=== PATIENT | female | born 1990 | race Caucasian/White ===

== ENCOUNTER 2016-10-19 09:47 | Emergency (ER) | payer MEDICAID, OTHER ==
--- NOTE | 2016-10-19 10:33 | PD ---
HPI Chief Complaint painless bleeding Date Seen: Oct 19, 2016 Time Seen: 10:20 (Mo Correia MD R1) Travel History International Travel<30 Days: No Contact w/Intl Traveler<30Days: No Known Affected Area: No (Mo Correia MD) History of Present Illness HPI 26 YO at 20 weeks gestation p/w painless bleeding per vagina beginning this morning. Amount of blood described is small without cramping or dysuria. Previous without complication. Pt denies CP, SOB, palpitations, [place] , blurry vision, dysuria, coagulation DO, vomiting or diarrhea, but has some nausea; also, no DVT calf pain. Para: 1 : 2 (Mo Correia MD) History Past Medical History Medical History: Denies Significant Hx (Mo Correia MD) Obstetric History Obstetric History , last 3 years ago w/o complication (Mo Correia MD) Past Surgical History Narrative Surgical R humerus fracture with plate as child (Mo Correia MD) Family History Family History: Negative (Mo Correia MD) Social History Alcohol Use: Yes (occasional glass of wine) Tobacco Use: No (quit when she got ) Substance Abuse: No (Mo Correia MD) Review of Systems General / Constitutional: Weight Gain, No: Fever, Weight Loss, Chills, Other Eyes: No: Diploplia, Blurred Vision, Visual changes, Pain, Photophobia, Other HENT: No: Headaches, Vertigo, Dental Difficulties, Lightheadedness, Other Cardiovascular: No: Irregular Rhythm, Chest Pain or Discomfort, Palpitations, Tachycardia, Syncope, Varicosities, Edema, Cyanosis, Other Respiratory: No: Cough, Short of Breath, Wheezing, Other Gastrointestinal: No: Nausea, Vomiting, Diarrhea, Abdominal Pain, Hematemesis, Hematochezia, Constipation, Changes in Bowel Habits, Indigestion, Loss of Appetite, Other Genitourinary: Pelvic Pain (occasional suprapubic pain), Vaginal Bleeding ( began this morning, painless) Skin: No Rash, No Itching, No Dryness, No Lumps, No Change in Pigmentation, No Change in Nails, No Alopecia, No Lesions, No Breast Lumps, No Breast Tenderness , No Breast Swelling, No Other Neurologic: Seizures, No: Weakness, Dizziness, Syncope, Focal Abnormalities, Coordination Problem, Headache, Slurred Speech Hematologic/Lymphatic: No Easy Bruising (Mo Correia MD R1) Physical Exam Narrative GENERAL: Well-nourished, well-developed patient in NAD. SKIN: Warm and dry. HEAD: Normocephalic and atraumatic. EYES: No scleral icterus. No injection or drainage. EOMI. ENT: No nasal drainage noted. Mucous membranes pink. Airway patent. NECK: Supple, trachea midline. CARDIOVASCULAR: Regular rate and rhythm without murmurs, gallops, or rubs. RESPIRATORY: Breath sounds equal bilaterally w/no increased WOB. No accessory muscle use. ABDOMEN/GI: Abdomen soft, non-tender, bowel sounds present, no rebound, no guarding Gravid to [20] weeks size Fundal Height: [20] GENITOURINARY: External genitalia were intact and normal in appearance; speculum exam revealed scant coating of blood in the posterior vaginal vault and on the cervical os. Cervix was closed, but a small polyp noted just inside the external os. EXTREMITIES: No cyanosis or edema. BACK: Nontender without obvious deformity. No CVA tenderness. NEUROLOGICAL: Awake and alert. Motor and sensory grossly within normal limits. CN II-XII grossly intact. Normal speech. (Mo Correia MD R1) MDM Medical Record Reviewed: Yes Narrative Course / MDM 26 YO at 20/1 weeks gestation by OB US performed at [facility] on 10/04/16 presents with painless vaginal bleeding that began this morning likely from small cervical polyp. - Discussed etiology of polyp bleeding - Advised pt to return if bleeding becomes heavier or more persistent - FHTs reassuring - OB US notes posterior placenta to r/o placenta previa - Discharged home (Mo Correia MD R1) Medical Record Reviewed: Yes (ultrasound report obtained and reviewed: posterior placenta, no previa) Attending Attestation The exam, history, and the medical decision-making described in the above note were completed with the assistance of the resident provider. I reviewed and agree with the findings presented. I attest that I had a [id number] encounter with the patient on the same day, and personally performed and documented my assessment and findings in the medical record. (Lupillo Ordonez MD) Diagnosis Diagnosis: Primary Impression: Polyp at cervical os Additional Impression: 20 weeks gestation of Disposition: 01 DISCHARGE HOME Condition: Good Mo Correia MD R1 Oct 19, 2016 10:33 Lupillo Ordonez MD Oct 19, 2016 11:04
== END 2016-10-19 11:46 | disposition home or self-care (01) ==
LOC: HOBED 09:47
DX: O34.42 Maternal care for other abnormalities of cervix, second trimester (principal); N84.1 Polyp of cervix uteri; Z3A.20 20 weeks gestation of pregnancy
CPT/HCPCS: 99281

== ENCOUNTER 2017-03-05 09:47 | Inpatient (IN) | payer MEDICAID ==
[~2017-03-05] VITALS: Ht 170.2 cm; Wt 82.0 kg
[2017-03-05] VITALS (16 sets, daily range): BP systolic 91–121; BP diastolic 58–77; PULSE 50–89; RESP 14–18; TEMP 98–98.6
[2017-03-05] MEDS ORDERED: LACTATED RINGER'S 1000 ML INJ 1,000 ML IV SCH (10:28)
[2017-03-05] MEDS ORDERED: LACTATED RINGER'S 1000 ML INJ 1,000 ML IV PRN (10:28)
[2017-03-05] MEDS ORDERED: LIDOCAINE HCL 1% 50 ML VIAL I-DERMAL PRN (10:30)
[2017-03-05] MEDS ORDERED: CITRIC ACID-SODIUM CITRATE LIQ 30 ML UDC PO SCH (10:30)
[2017-03-05] MEDS ORDERED: SODIUM CHLORID 0.9% 500 ML INJ 500 ML IV PRN (10:30)
[2017-03-05] MEDS ORDERED: MINERAL OIL 10 ML VIAL TOPICAL PRN (10:30)
[2017-03-05] MEDS ORDERED: LIDOCAINE HCL 1% 50 ML VIAL INFIL PRN (10:30)
--- NOTE | 2017-03-05 10:40 | PD ---
HPI Chief Complaint Contractions Date Seen: Mar 05, 2017 Time Seen: 10:00 Travel History International Travel<30 Days: No Contact w/Intl Traveler<30Days: No Known Affected Area: No History of Present Illness HPI 26 y/o at 39/5 weeks gestation presents to the [facility] ED with a chief complaint of contractions that began around 8:45 AM today. Patient states that the contractions are regular and 3 minutes apart. Her water broke around 9:[address] to the hospital, she states the fluid was clear with some blood. Patient gets her care at [facility] and gynecology in [place]. She states that her has been uncomplicated, she passed her diabetes screen, and her blood pressures have been normal. Notably, she is GBS negative. Patient would like a natural delivery with no epidural and would not like to be augmented with Pitocin. She has to have the baby in the hospital because she is hep C positive. She did have some bleeding on Sunday evening and this morning that she said was like a period. History Past Medical History Narrative Medical Hepatitis C Obstetric History Obstetric History Last was full term with no complications, delivery in 2013 in the [facility] Past Surgical History Narrative Surgical Arm surgery Family History Family History: Negative Social History Alcohol Use: No Tobacco Use: Yes (in the process of quitting, down to 2 cigarettes per day) Substance Abuse: No Allergies-Medications (Allergen,Severity, Reaction): Coded Allergies: No Known Allergies (Unverified , 03/05/17) Review of Systems Except as stated in HPI: all other systems reviewed are Neg Physical Exam Narrative GENERAL: Well-nourished, well-developed patient. SKIN: Warm and dry. HEAD: Normocephalic and atraumatic. EYES: No scleral icterus. No injection or drainage. ENT: No nasal drainage noted. Mucous membranes pink. Airway patent. NECK: Supple, trachea midline. No JVD. CARDIOVASCULAR: Regular rate and rhythm without murmurs, gallops, or rubs. RESPIRATORY: Breath sounds equal bilaterally. No accessory muscle use. ABDOMEN/GI: Abdomen soft, non-tender, bowel sounds present, no rebound, no guarding Gravid to 40 weeks size GENITOURINARY: External Genitalia: intact, enlarged varicose veins on the right labia majora Cervix: Dilatation: 7 cm Effacement: 100% Station: -1 Presentation: Cephalic Membranes: ruptured Uterine Contractions: every 3-4 mins FHT's: Category: I Baseline: 150 Reactive: accels present up to165 Variability: Moderate Decels: None EXTREMITIES: No cyanosis or edema. BACK: Nontender without obvious deformity. NEUROLOGICAL: Awake and alert. Motor and sensory grossly within normal limits. Five out of 5 muscle strength in all muscle groups. Normal speech. Data Data Vital Signs Reviewed: Yes Orders Orders Ob/Psych Drug Screen, Urine (03/05/17 10:27) Admit To Inpatient (03/05/17 ) Code Status (03/05/17 10:28) Vital Signs (Adult) .Per protocol (03/05/17 10:28) Activity Oob Ad Aditi (03/05/17 10:28) Heart (03/05/17 10:28) Amnioinfusion (03/05/17 10:28) Urinary Catheter Management .ONCE (03/05/17 10:28) Diet Liquid (03/05/17 Lunch) Lactated Ringer's 1000 Ml Inj (Lr 1000 M (03/05/17 10:28) Lactated Ringer's 1000 Ml Inj (Lr 1000 M (03/05/17 10:28) Sodium Chlorid 0.9% 500 Ml Inj (Ns 500 M (03/05/17 10:30) Sodium Chlor 0.9% 1000 Ml Inj (Ns 1000 M (03/05/17 10:48) Lidocaine 1% Inj (50 Ml) (Xylocaine 1% I (03/05/17 10:30) Citric Acid-Sodium Citrate Liq (Bicitra (03/05/17 10:30) Fentanyl Inj (Fentanyl Inj) (03/05/17 10:30) Fentanyl Inj (Fentanyl Inj) (03/05/17 10:30) Complete Blood Count With Diff (03/05/17 10:28) Hold Clot (03/05/17 10:28) Abo/Rh Blood Type (03/05/17 10:28) Urinalysis - C+S If Indicated (03/05/17 10:28) Drug Screen, Random Urine (03/05/17 10:28) Hepatitis Profile (03/05/17 10:28) Resp Oxygen Non Rebreathe Mask (03/05/17 ) ^ Epidural / Intrathecal Infus (03/05/17 10:28) Oxytocin 30 Units-500ml Premix (Pitocin (03/05/17 10:30) Lidocaine 1% Inj (50 Ml) (Xylocaine 1% I (03/05/17 10:30) Light Mineral Oil (Muri-Lube Oil) (03/05/17 10:30) Inpatient Certification (03/05/17 ) Specimen To Be Collected PRN (03/05/17 10:28) Specimen To Be Collected PRN (03/05/17 10:28) MDM Medical Record Reviewed: Yes Interpretation(s) 26-year-old presents in active labor, spontaneously ruptured Plan Intrauterine , heart tones, category I reassuring -Admit to L&D -Continuous monitoring -Patient does not desire an epidural or augmentation with Pitocin if needed -Continue routine antepartum care -Expect vaginal delivery -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
[2017-03-05] MEDS ORDERED: SODIUM CHLOR 0.9% 1000 ML INJ 1,000 ML IV PRN (10:48)
--- NOTE | 2017-03-05 10:54 | HHI.HP ---
History & Physical H&P Chief Complaint Contractions Date Seen: Mar 05, 2017 Time Seen: 10:00 Travel History International Travel<30 Days: No Contact w/Intl Traveler<30Days: No Known Affected Area: No History of Present Illness HPI 26 y/o at 39/5 weeks gestation presents to the [facility] ED with a chief complaint of contractions that began around 8:45 AM today. Patient states that the contractions are regular and 3 minutes apart. Her water broke around 9:[address] to the hospital, she states the fluid was clear with some blood. Patient gets her care at [facility] and gynecology in [place]. She states that her has been uncomplicated, she passed her diabetes screen, and her blood pressures have been normal. Notably, she is GBS negative. Patient would like a natural delivery with no epidural and would not like to be augmented with Pitocin. She has to have the baby in the hospital because she is hep C positive. She did have some bleeding on Sunday evening and this morning that she said was like a period. History (Limited) History Past Medical History Narrative Medical Hepatitis C Obstetric History Obstetric History Last was full term with no complications, delivery in 2013 in the [place] of [place] Past Surgical History Narrative Surgical Arm surgery Family History Family History: Negative Social History Alcohol Use: No Tobacco Use: Yes (in the process of quitting, down to 2 cigarettes per day) Substance Abuse: No Allergies-Medications Allergies-Medications (Allergen,Severity, Reaction): Coded Allergies: No Known Allergies (Unverified , 03/05/17) ROS Review of Systems Except as stated in HPI: all other systems reviewed are Neg Physical Exam Physical Exam Narrative GENERAL: Well-nourished, well-developed patient. SKIN: Warm and dry. HEAD: Normocephalic and atraumatic. EYES: No scleral icterus. No injection or drainage. ENT: No nasal drainage noted. Mucous membranes pink. Airway patent. NECK: Supple, trachea midline. No JVD. CARDIOVASCULAR: Regular rate and rhythm without murmurs, gallops, or rubs. RESPIRATORY: Breath sounds equal bilaterally. No accessory muscle use. ABDOMEN/GI: Abdomen soft, non-tender, bowel sounds present, no rebound, no guarding Gravid to 40 weeks size GENITOURINARY: External Genitalia: intact, enlarged varicose veins on the right labia majora Cervix: Dilatation: 7 cm Effacement: 100% Station: -1 Presentation: Cephalic Membranes: ruptured Uterine Contractions: every 3-4 mins FHT's: Category: I Baseline: 150 Reactive: accels present up to165 Variability: Moderate Decels: None EXTREMITIES: No cyanosis or edema. BACK: Nontender without obvious deformity. NEUROLOGICAL: Awake and alert. Motor and sensory grossly within normal limits. Five out of 5 muscle strength in all muscle groups. Normal speech. Data Data Data Vital Signs Reviewed: Yes Orders Orders Ob/Psych Drug Screen, Urine (03/05/17 10:27) Admit To Inpatient (03/05/17 ) Code Status (03/05/17 10:28) Vital Signs (Adult) .Per protocol (03/05/17 10:28) Activity Oob Ad Aditi (03/05/17 10:28) Heart (03/05/17 10:28) Amnioinfusion (03/05/17 10:28) Urinary Catheter Management .ONCE (03/05/17 10:28) Diet Liquid (03/05/17 Lunch) Lactated Ringer's 1000 Ml Inj (Lr 1000 M (03/05/17 10:28) Lactated Ringer's 1000 Ml Inj (Lr 1000 M (03/05/17 10:28) Sodium Chlorid 0.9% 500 Ml Inj (Ns 500 M (03/05/17 10:30) Sodium Chlor 0.9% 1000 Ml Inj (Ns 1000 M (03/05/17 10:48) Lidocaine 1% Inj (50 Ml) (Xylocaine 1% I (03/05/17 10:30) Citric Acid-Sodium Citrate Liq (Bicitra (03/05/17 10:30) Fentanyl Inj (Fentanyl Inj) (03/05/17 10:30) Fentanyl Inj (Fentanyl Inj) (03/05/17 10:30) Complete Blood Count With Diff (03/05/17 10:28) Hold Clot (03/05/17 10:28) Abo/Rh Blood Type (03/05/17 10:28) Urinalysis - C+S If Indicated (03/05/17 10:28) Drug Screen, Random Urine (03/05/17 10:28) Hepatitis Profile (03/05/17 10:28) Resp Oxygen Non Rebreathe Mask (03/05/17 ) ^ Epidural / Intrathecal Infus (03/05/17 10:28) Oxytocin 30 Units-500ml Premix (Pitocin (03/05/17 10:30) Lidocaine 1% Inj (50 Ml) (Xylocaine 1% I (03/05/17 10:30) Light Mineral Oil (Muri-Lube Oil) (03/05/17 10:30) Inpatient Certification (03/05/17 ) Specimen To Be Collected PRN (03/05/17 10:28) Specimen To Be Collected PRN (03/05/17 10:28) MDM MDM Medical Record Reviewed: Yes Interpretation(s) 26-year-old presents in active labor, spontaneously ruptured Plan Intrauterine , heart tones, category I reassuring -Admit to L&D -Continuous monitoring -Patient does not desire an epidural or augmentation with Pitocin if needed -Continue routine antepartum care -Expect vaginal delivery -Patient's rotary filter operator presents in the labor room Princess Coats MD R2 Mar 05, 2017 10:54
[2017-03-05] MEDS ORDERED: OXYTOCIN 30 UNITS-500ML PREMIX 500 ML IV ONE (11:00)
[2017-03-05] MEDS ORDERED: PREN29TA4 (11:43)
[2017-03-05 11:54] LABS: AUTOMATED NEUTROPHIL # 9.4 TH/MM3 (1.8-7.7); BASOPHIL % 0.2 % (0.0-2.0); EOSINOPHIL % 0.4 % (0.0-4.0); HEMATOCRIT 37.3 % (35.0-46.0); HEMO FLAGS DIFF FINAL; LYMPH % 14.6 % (9.0-44.0); LYMPHOCYTE # 1.7 TH/MM3 (1.0-4.8); MEAN CORPUSCULAR HEMOGLOBIN 32.1 PG (27.0-34.0); MEAN CORPUSCULAR HGB CONC 34.1 % (32.0-36.0); MONO % 5.3 % (0.0-8.0); NEUT % 79.5 % (16.0-70.0); PLATELET COUNT 218 TH/MM3 (150-450); RED BLOOD COUNT 3.97 MIL/MM3 (4.00-5.30); RED CELL DISTRIBUTION WIDTH 13.5 % (11.6-17.2); WHITE BLOOD COUNT 11.8 TH/MM3 (4.0-11.0)
[2017-03-05 12:16] LABS: BACTERIA, URINE FEW /hpf; BLOOD, URINE LARGE (NEG); COMMENT (UR) CULTURE INDICATED; CULTURE IF INDICATED CULTURE INDICATED; GLUCOSE,URINE NEG (NEG); KETONE, URINE TRACE mg/dL (NEG); MUCUS URINE MOD /lpf (OCC); NITRITE,URINE NEG (NEG); SQUAMOUS EPITHELIAL CELL URINE 69 /hpf (0-5); URINE COLOR YELLOW (YELLW/STRAW)
--- NOTE | 2017-03-05 12:54 | PD.OB.DELI ---
Weeks gestation: 39 (39/5weeks) Gest age assessed date: Mar 05, 2017 Gest age assessed time: 10:30 Pt started active labor?: Yes Active labor start date: Mar 05, 2017 Active labor start time: 09:20 Medical induction of labor?: No Artificial rupture of membrane: No Anesthesia: None Episiotomy: None Vaginal Delivery: Normal, Spontaneous Presentation: Occiput anterior Nuchal Cord: None Delayed cord clamping (45 sec): Yes Delivery date: Mar 05, 2017 Delivery time: 12:35 One Minute : 8 Five Minute : 9 Weight: 3540g Placenta: Spontaneous delivery, Intact Laceration: No lacerations Estimated blood loss: 100cc Additional Information Dr Correia delivered, Dr Mederos supervised, and Dr Coats assisted. Mo Correia MD R1 Mar 05, 2017 12:54
[2017-03-05] MEDS ORDERED: ZOLPIDEM TARTRATE 5 MG TAB PO PRN (13:00)
[2017-03-05] MEDS ORDERED: DOCUSATE SODIUM 50 MG/SENNA 8.6 MG TAB PO PRN (13:00)
[2017-03-05] MEDS ORDERED: ALUMINUM/MAGNESIUM/SIMETH 30 ML CUP PO PRN (13:00)
[2017-03-05] MEDS ORDERED: BENZOCAINE 20% TOPICAL SPRAY 60 ML CAN TOPICAL PRN (13:00)
[2017-03-05] MEDS ORDERED: ONDANSETRON ODT 4 MG TAB PO PRN (13:00)
[2017-03-05] MEDS ORDERED: SODIUM CHLORIDE 0.9% FLUSH 10 ML FLUSH IV FLUSH PRN (13:00)
[2017-03-05] MEDS ORDERED: WITCH HAZEL 50%/GLYCERIN 12.5% 40 PAD JAR TOPICAL PRN (13:00)
[2017-03-05] MEDS ORDERED: IBUPROFEN 800 MG TAB PO PRN (13:00)
[2017-03-05] MEDS ORDERED: ACETAMINOPHEN 325 MG TAB PO PRN (13:00)
[2017-03-05] MEDS ORDERED: OXYTOCIN 30 UNITS-500ML PREMIX 500 ML IV SCH (13:00)
[2017-03-05] MEDS ORDERED: DIPHTH/TETANUS/ACEL PERTUSSIS (BOOSTER) 0.5 ML VIAL/PFS IM ONE (16:00)
[2017-03-05] MEDS ORDERED: MEASLES, MUMPS, RUBELLA VACCINE 0.5 ML VIAL SQ ONE (16:00)
[2017-03-05] MEDS ORDERED: SODIUM CHLORIDE 0.9% FLUSH 10 ML FLUSH IV FLUSH SCH (21:00)
[2017-03-06 08:00] VITALS: BP 103/68; PULSE 60; RESP 16; TEMP 98.1
--- NOTE | 2017-03-06 08:33 | HHI.OB ---
Subjective Post Day: 1 Remarks Ms Mackey had no acute events overnight. Her pain is well controlled, ambulating , tolerating PO, voiding, and flatus but no stool yet. Lochia is normal in volume and decreasing. VSS. Denies CP, SOB, N/V/D, and DVT pain. Objective Vitals/I&O Vital Signs Date Time Temp Pulse Resp B/P (MAP) Pulse Ox O2 Delivery O2 Flow Rate FiO2 03/05/17 19:38 98.4 50 14 118/69 (85) 03/05/17 15:05 98.1 03/05/17 15:05 76 14 109/61 (77) 03/05/17 14:31 70 118/61 (80) 03/05/17 14:19 60 120/65 (83) 03/05/17 13:45 53 110/71 (84) 03/05/17 13:30 64 113/58 (76) 03/05/17 13:15 78 102/59 (73) 03/05/17 13:05 98.6 03/05/17 13:01 85 121/77 (92) 03/05/17 12:59 18 03/05/17 12:47 89 91/69 (76) 03/05/17 12:42 87 118/68 (85) 03/05/17 12:40 18 03/05/17 11:40 98.0 18 03/05/17 11:38 73 118/71 (87) 03/05/17 11:01 68 113/71 (85) Objective Remarks GENERAL: Well-nourished, well-developed patient in NAD her baby. CARDIOVASCULAR: Regular rate and rhythm without murmur, gallop, or rub. RESPIRATORY: Breath sounds equal bilaterally in all lung arriaga. No accessory muscle use. ABDOMEN/GI: Abdomen soft, non-tender. Appropriately distended. Fundus: Firm, non-tender below umbilicus. GENITOURINARY: Light to moderate bleeding. EXTREMITIES: No cyanosis or edema, non-tender, without signs of DVT. Medications and IVs Current Medications Medications (Trade) Dose Ordered Sig/Hortensia Route Start Time Stop Time Status Last Admin (NS Flush) 2 ml BID IV FLUSH 03/05/17 21:00 (NS Flush) 2 ml UNSCH PRN IV FLUSH 03/05/17 13:00 (Tylenol) 650 mg Q4H PRN PO 03/05/17 13:00 (Motrin) 800 mg Q8H PRN PO 03/05/17 13:00 (Americaine 20% Top Spr) 1 spray Q4H PRN TOPICAL 03/05/17 13:00 03/05/17 16:40 (Tucks Pads) 1 applic QID PRN TOPICAL 03/05/17 13:00 03/05/17 16:40 (Anabelle-Colace) 2 tab Q12H PRN PO 03/05/17 13:00 (Ambien) 5 mg HS PRN PO 03/05/17 13:00 (Mag-Al Plus Susp Liq) 15 ml Q8H PRN PO 03/05/17 13:00 (Zofran Odt) 4 mg Q6H PRN PO 03/05/17 13:00 Assessment/Plan Assessment and Plan 26YO delivered via at 39/5 weeks and is PPD#1. AFVSS with isolated HR at 50. Pain controlled, ambulating w/o dizziness, taking PO, voiding and flatus. No BM yet. Lochia normal and decreasing. No CP, SOB, N/V/D, or DVT pain. PLAN: -Routine care -Ibuprofen PRN for pain/cramping -Encouraged ambulation, -Hepatitis panel pending -Advised vaginal rest for 6 weeks; showers only for next week or two -Will follow up with [facility] in 6 weeks -Considering control options--would like LARC; advised we can do depot in hospital before discharge if desired -Likely discharge tomorrow Discussed with Jae Mederos and Mo Ramos MD R1 Mar 06, 2017 08:33
[2017-03-06] MEDS ORDERED: IBUP1TAB7 PO (16:24)
[2017-03-06] MEDS ORDERED: PERI PO (16:24)
--- NOTE | 2017-03-06 16:25 | HHI.DCPOC ---
Discharge Care Plan Diagnosis: (1) Vaginal delivery (2) Hepatitis C antibody positive in blood Report Symptoms to Your Doctor -Temperature above 100.5 degrees -Redness, of incision or excessive or foul smelling drainage -Unusual pain or calf pain -Increased vaginal bleeding -Painful or difficulty urinating -Feelings of extreme sadness or anxiety after 2 weeks Goals to Promote Your Health * To prevent worsening of your condition and complications * To maintain your health at the optimal level Directions to Meet Your Goals Take your medications as prescribed Follow your dietary instruction Follow activity as directed Ensure plenty of rest for recovery Drink fluids for hydration Keep your appointments as scheduled Take your immunizations and boosters as scheduled If your symptoms worsen call your PCP, if no PCP go to Urgent Care Center or Emergency Room Smoking is Dangerous to Your Health. Avoid second hand smoke Call the 24-hour crisis hotline for domestic abuse at Princess Coats MD R2 Mar 06, 2017 16:25
== END 2017-03-06 18:56 | disposition home or self-care (01) | DRG 774 ==
LOC: HOBED 09:47 → H2EB 10:23 → H2EA 10:38 → H1EA 14:43
PROVIDERS: ADMIT Obstetrics & Gynecology Maternal & Fetal Medicine; ATTEND Obstetrics & Gynecology Maternal & Fetal Medicine
PROC: 10E0XZZ Delivery of Products of Conception, External Approach (ICD-10-PCS; principal; 2017-03-05)
DX: O98.42 Viral hepatitis complicating childbirth (principal); B19.20 Unspecified viral hepatitis C without hepatic coma; O99.334 Smoking (tobacco) complicating childbirth; F17.210 Nicotine dependence, cigarettes, uncomplicated; Z3A.39 39 weeks gestation of pregnancy; Z37.0 Single live birth
CPT/HCPCS: 80074; 80307; 81001; 84112; 85025; 86900; 86901; 87086; 90715; J2590; J7120